=== PATIENT | female | born 1960 | race Caucasian/White ===

== ENCOUNTER 2016-06-12 11:37 | Outpatient (CLI) | payer OTHER ==
[2016-06-12] MEDS ORDERED: GADOBUTROL 10 ML VIAL IVP ONE (11:48)
[2016-06-12] MEDS ORDERED: ROCURONIUM 100 MG/10 ML VIAL ONE (11:50)
[2016-06-12] MEDS ORDERED: SUCCINYLCHOLINE CHLORIDE 200 MG/10 ML VIAL ONE (11:50)
[2016-06-12] MEDS ORDERED: PROPOFOL/EMULSION 500 MG/50 ML BOTTLE IV ONE (13:07)
[2016-06-12] MEDS ORDERED: fentaNYL 100 MCG/2 ML INJ ONE (13:23)
[2016-06-12] MEDS ORDERED: MIDAZOLAM 2 MG/2 ML VIAL ONE (13:23)
--- NOTE | 2016-06-12 17:55 | MR ---
MRI of the Brain (Without and With Contrast) at 1342 hours Clinical Indication: G35, multiple sclerosis. Technique: T1-weighted images were acquired axially and sagittally from the foramen magnum to the ve rtex. Axial fast inversion-recovery, fast T2-weighted, and diffusion-weighted axial images were obta ined, without contrast. Postcontrast axial , coronal, and sagittal T1 and T2 FLAIR images, with the uneventful intravenous administration of 7 mL Gadavist contrast. COMPARISON: None available. Findings: Throughout the white matter bilateral cerebral hemispheres, especially in the periventricu lar white matter of bilateral frontal, parietal, and occipital lobes, there are multiple hyperintense T2/FLAIR nonenhancing signal abnormalities predominantly perpendicular to the long axis of the later al ventricles characteristic of demyelinating plaques from multiple sclerosis. No evidence of enhanc ing demyelinating plaques. In the mesial aspect of the left cerebellar hemisphere near the torcular herophili, there is a superf icial enhancing nonspecific 8- x 6-mm nodular-appearing lesion best identified on the axial and coron al postcontrast series. The ventricles, cisterns, and sulci are normal, without atrophy, hydrocephalus, midline shift, hernia tion, or epidural/subdural hematomas. No intracranial hemorrhage. Diffusion-weighted images demonst rate no acute infarct. Cerebellar tonsils are in normal position. Pituitary gland is normal in size . Normal signal flow void in the superior sagittal sinus, basilar artery, and bilateral internal car otid arteries indicating patency. Paranasal sinuses and mastoid air cells are clear. Impressions 1. Multiple nonenhancing demyelinating plaques bilateral cerebral hemispheres consistent with multip le sclerosis. No enhancing demyelinating plaques. 2. Left mesial cerebellar hemisphere subcentimeter nodular enhancing lesion, with a differential martine gnosis of meningioma versus metastasis. Recommend obtaining previous studies for comparison. 3. No acute infarct, acute hemorrhage, hydrocephalus, or mass effect. Recommendation: Obtaining previous studies for comparison. E:jael
== END 2016-06-12 16:35 | disposition home or self-care (01) ==
LOC: FIMAGING 11:37
PROVIDERS: ATTEND Psychiatry & Neurology Neurology
DX: G35 Multiple sclerosis (principal); R90.0 Intracranial space-occupying lesion found on diagnostic imaging of central nervous system
CPT/HCPCS: A9585; J0330; J2250; J2704; J3010